=== PATIENT | male | born 1990 | race Caucasian/White ===

== ENCOUNTER → 2017-05-15 | Outpatient (REF) | payer BC | LOC: M SFHCLERA 09:50 | PROVIDERS: ATTEND Nurse Practitioner Family | DX: J02.9 Acute pharyngitis, unspecified (principal) ==

== ENCOUNTER → 2017-06-19 | Outpatient (CLI) | payer BC ==
--- NOTE | 2017-06-20 01:42 | REP ---
Clinical: Lower back pain . Technique: AP, lateral, bilateral oblique, and coned-down views. Findings: Alignment and lordosis is maintained. The vertebral bodies are intact and there is no evidence for acute fracture / compression injury or subluxation. L5 spondylolysis without spondylolisthesis cannot be excluded. No further degenerative changes noted. Impression: L5 spondylolysis suspected without spondylolisthesis. Signed by Topher Kim MD 06/20/2017 01:34 A
== END ==
LOC: M LRY 14:39
PROVIDERS: ATTEND Family Medicine
DX: M54.5 Low back pain (principal)

== ENCOUNTER → 2017-06-19 | Outpatient (REF) | payer BC ==
[2017-06-19 17:05] LABS: ALBUMIN/GLOBULIN RATIO 1.08 (1.00-1.93); ALKALINE PHOSPHATASE 94 U/L (45-117); ALT/SGPT 74 U/L (12-78); ANION GAP 9 MEQ/L (8-16); AST/SGOT 47 U/L (15-37); BILIRUBIN,TOTAL 0.3 MG/DL (0.2-1.0); BLOOD UREA NITROGEN 10 MG/DL (7-18); CALCIUM LEVEL 9.2 MG/DL (8.5-10.1); CARBON DIOXIDE LEVEL 29 MEQ/L (21-32); CHLORIDE LEVEL 100 MEQ/L (98-107); CHOLESTEROL LEVEL 160 MG/DL (<200); CREATININE FOR GFR 0.81 MG/DL (0.70-1.30); GLOMERULAR FILTRATION RATE > 60.0 (>60); GLUCOSE, FASTING 77 MG/DL (70-105); POTASSIUM SERUM 3.7 MEQ/L (3.5-5.1); SODIUM LEVEL 138 MEQ/L (136-145); TOTAL PROTEIN 7.7 GM/DL (6.4-8.2); TRIGLYCERIDES LEVEL 129 MG/DL (<150)
== END ==
LOC: M SFHCLERA 14:32
PROVIDERS: ATTEND Family Medicine
DX: Z87.898 Personal history of other specified conditions (principal); Z13.220 Encounter for screening for lipoid disorders

== ENCOUNTER 2018-02-02 20:31 | Emergency (ER) | payer BC ==
[2018-02-02] MEDS: KETOROLAC 30 MG/ML VIAL (J1885) IV (21:46)
[2018-02-02] MEDS: NS 1,000 ML IV (21:46)
[2018-02-02 22:12] LABS: BASO % 0.2 % (0.0-1.0); EOS # 0.1 10^3/uL (0.0-0.50); HEMATOCRIT 44.7 % (42.0-52.0); HEMOGLOBIN 14.4 g/dl (14.0-18.0); IMMATURE GRANULOCYTE % 0.7 % (0-3.0); LYMPH # 1.3 10^3/uL (1.5-6.5); LYMPH % 9.5 % (24.0-44.0); MEAN CORPUSCULAR HEMOGLOBIN 26.8 pg (27.0-33.0); MEAN CORPUSCULAR HGB CONC 32.2 g/dl (32.0-36.5); MEAN CORPUSCULAR VOLUME 83.2 fl (80.0-96.0); MONO # 1.2 10^3/uL (0.0-0.8); MONO % 8.7 % (0.0-5.0); NEUTROPHILS # 10.9 10^3/uL (1.8-7.7); NEUTROPHILS % 79.9 % (36.0-66.0); PLATELET COUNT, AUTOMATED 307 10^3/uL (150-450); RED BLOOD COUNT 5.37 10^6/uL (4.30-6.10); RED CELL DISTRIBUTION WIDTH 12.5 % (11.5-14.5); WHITE BLOOD COUNT 13.6 10^3/uL (4.0-10.0)
[2018-02-02 22:16] LABS: KETONE, URINE AUTO RFX 1+ mg/dL (NEGATIVE); LEUKOCYTE ESTERASE UR AUTO RFX NEGATIVE (NEGATIVE); MUCUS, URINE RFX SMALL (NEGATIVE); NITRITE, URINE AUTO RFX NEGATIVE (NEGATIVE); RBC, URINE AUTO RFX 5 /HPF (0-3); SPECIFIC GRAVITY UR AUTO RFX 1.024 (1.002-1.035); SQUAM EPITHELIAL CELL UR AURFX 0 /HPF (0-6); WBC, URINE AUTO RFX 0 /HPF (0-3)
[2018-02-02 22:32] LABS: ALBUMIN 3.2 GM/DL (3.2-5.2); ALKALINE PHOSPHATASE 72 U/L (45-117); ALT/SGPT 23 U/L (12-78); AMYLASE 33 U/L (25-115); ANION GAP 6 MEQ/L (8-16); AST/SGOT 16 U/L (7-37); BILIRUBIN,DIRECT < 0.1 MG/DL (0.0-0.2); BILIRUBIN,TOTAL 0.4 MG/DL (0.2-1.0); BLOOD UREA NITROGEN 7 MG/DL (7-18); CALCIUM LEVEL 9.3 MG/DL (8.5-10.1); CARBON DIOXIDE LEVEL 30 MEQ/L (21-32); CHLORIDE LEVEL 102 MEQ/L (98-107); CREATININE FOR GFR 0.68 MG/DL (0.70-1.30); GLOMERULAR FILTRATION RATE > 60.0 (>60); GLUCOSE, FASTING 91 MG/DL (70-100); LIPASE 121 U/L (73-393); POTASSIUM SERUM 3.7 MEQ/L (3.5-5.1); SODIUM LEVEL 138 MEQ/L (136-145); TOTAL PROTEIN 8.5 GM/DL (6.4-8.2)
[2018-02-02] MEDS: predniSONE 20 MG TAB PO (23:37)
== END 2018-02-02 23:40 | disposition home or self-care (01) ==
LOC: M ED 20:31
DX: K50.00 Crohn's disease of small intestine without complications (principal); K59.00 Constipation, unspecified; Z91.041 Radiographic dye allergy status
CPT/HCPCS: J1885

== ENCOUNTER → 2018-03-25 | Outpatient (CLI) | payer BC ==
[2018-03-25 13:13] LABS: VITAMIN B12 LEVEL 383 PG/ML (247-911)
== END ==
LOC: M LAB 12:05
DX: R19.7 Diarrhea, unspecified (principal)
CPT/HCPCS: 82607

== ENCOUNTER → 2018-03-27 | Outpatient (CLI) | payer BC ==
[~2018-03-27] MED LIST: E-Z-PAQUE 96% w/w SUSP 176GM BTL As Ordered
== END ==
LOC: M RAD 09:00
DX: R93.3 Abnormal findings on diagnostic imaging of other parts of digestive tract (principal); R10.31 Right lower quadrant pain; R19.7 Diarrhea, unspecified
CPT/HCPCS: 74250

== ENCOUNTER 2018-04-09 09:40 | Day surgery (SDC) | payer BC ==
[2018-04-09] MEDS: NS 1,000 ML IV ×2 (10:00)
[2018-04-09] MEDS ORDERED: LIDOCAINE 2% INJ 100 MG/5 ML SDV (FOR ANES.) As Ordered ×2 (10:39)
[2018-04-09] MEDS ORDERED: PROPOFOL 200 MG/20 ML VIAL As Ordered ×10 (10:39→11:53)
== END 2018-04-09 13:28 | disposition home or self-care (01) ==
LOC: M OPP 09:40
DX: R93.3 Abnormal findings on diagnostic imaging of other parts of digestive tract (principal); K56.699 Other intestinal obstruction unspecified as to partial versus complete obstruction; D49.0 Neoplasm of unspecified behavior of digestive system; R11.10 Vomiting, unspecified; Z91.041 Radiographic dye allergy status; Z83.79 Family history of other diseases of the digestive system
CPT/HCPCS: 45380

== ENCOUNTER → 2019-02-18 | Outpatient (CLI) | payer BC ==
[~2019-02-18] MED LIST changes: -E-Z-PAQUE 96% w/w SUSP 176GM BTL As Ordered; +MEDR4PAK PO; +ZOFR4TAB14 PO
[2019-02-19 09:46] LABS: HEPATITIS B SURFACE ANTIBODY NEGATIVE (POSITIVE); HEPATITIS B SURFACE ANTIGEN NEGATIVE (NEGATIVE)
== END ==
LOC: M LAB 16:33
PROVIDERS: ATTEND Internal Medicine Gastroenterology
DX: K50.012 Crohn's disease of small intestine with intestinal obstruction (principal)

== ENCOUNTER → 2019-12-07 | Outpatient (REF) | payer BC | LOC: M SFHCLERA 10:20 | PROVIDERS: ATTEND Nurse Practitioner Family | DX: R50.9 Fever, unspecified (principal) ==

== ENCOUNTER 2020-04-22 02:36 | Emergency (ER) | payer BC ==
[~2020-04-22] VITALS: Ht 170.2 cm; Wt 82.0 kg
[2020-04-22 02:36] VITALS: BP 158/94
[2020-04-22] MEDS ORDERED: HUMI40KI SC (02:40)
== END 2020-04-22 03:45 | disposition left against medical advice (07) ==
LOC: M ED 02:36
DX: H57.13 Ocular pain, bilateral (principal); Z53.21 Procedure and treatment not carried out due to patient leaving prior to being seen by health care provider

== ENCOUNTER → 2020-10-16 | Outpatient (CLI) | payer BC ==
[~2020-10-16] MED LIST changes: +HUMI40KI SC
[2020-10-16 14:34] LABS: BASO # 0.1 10^3/uL (0.0-0.2); BASO % 0.4 % (0.0-1.0); EOS # 0.2 10^3/uL (0.0-0.5); EOS % 1.3 % (0.0-3.0); HEMATOCRIT 53.3 % (42.0-52.0); HEMOGLOBIN 17.3 g/dl (13.5-17.5); LYMPH # 1.9 10^3/uL (1.5-5.0); LYMPH % 16.3 % (24.0-44.0); MEAN CORPUSCULAR HEMOGLOBIN 29.4 pg (27.0-33.0); MEAN CORPUSCULAR HGB CONC 32.5 g/dl (32.0-36.5); MEAN CORPUSCULAR VOLUME 90.5 fl (80.0-96.0); MONO % 8.6 % (0.0-5.0); NEUTROPHILS # 8.6 10^3/uL (1.5-8.5); NEUTROPHILS % 72.8 % (36.0-66.0); PLATELET COUNT, AUTOMATED 199 10^3/uL (150-450); RED BLOOD COUNT 5.89 10^6/uL (4.30-6.10); WHITE BLOOD COUNT 11.8 10^3/uL (4.0-10.0)
[2020-10-16 15:31] LABS: ALBUMIN 4.3 GM/DL (3.2-5.2); ALT/SGPT 44 U/L (12-78); BILIRUBIN,TOTAL 0.6 MG/DL (0.2-1.0); BLOOD UREA NITROGEN 12 MG/DL (7-18); CALCIUM LEVEL 9.7 MG/DL (8.5-10.1); CARBON DIOXIDE LEVEL 30 MEQ/L (21-32); CHLORIDE LEVEL 103 MEQ/L (98-107); CREATININE FOR GFR 0.85 MG/DL (0.70-1.30); FREE T4 1.04 NG/DL (0.76-1.46); GLOMERULAR FILTRATION RATE > 60.0 (>60); GLUCOSE, FASTING 80 MG/DL (70-100); HEPATITIS B SURFACE ANTIGEN NEGATIVE (NEGATIVE); IRON (FE) 122 UG/DL (65-175); PERCENT SATURATION 28.6 % (19.7-50.0); POTASSIUM SERUM 4.1 MEQ/L (3.5-5.1); SODIUM LEVEL 139 MEQ/L (136-145); TOTAL IRON BINDING CAPACITY 427 UG/DL (250-450); TOTAL PROTEIN 8.2 GM/DL (6.4-8.2)
[2020-10-16 19:07] LABS: VITAMIN B12 LEVEL 419 PG/ML (247-911)
== END ==
LOC: M LAB 13:52
PROVIDERS: ATTEND Internal Medicine Gastroenterology
DX: K50.00 Crohn's disease of small intestine without complications (principal)

== ENCOUNTER → 2021-09-25 | Outpatient (CLI) | payer BC | LOC: M LAB 12:26 | PROVIDERS: ATTEND Internal Medicine Gastroenterology | DX: K50.00 Crohn's disease of small intestine without complications (principal) ==

== ENCOUNTER 2022-04-04 07:47 | Emergency (ER) | payer OTHER, BC ==
[~2022-04-04] VITALS: Ht 172.7 cm; Wt 98.2 kg
[2022-04-04] MEDS ORDERED: LIDOCAINE 5% (LIDODERM) PATCH TD ONE (11:20)
[2022-04-04] MEDS ORDERED: LIDOCAINE 1% MDV 20ML VIAL SC ONE (11:20)
[2022-04-04] MEDS ORDERED: NEOSPORIN OINT 0.9 GM PKT TOP ONE (11:20)
[2022-04-04] MEDS ORDERED: BOOSTRIX/ADACEL VACCINE (DIPHTH/PERTUSS/ACELL/TETANUS) 0.5ML SYR IM ONE (11:25)
[2022-04-04] MEDS ORDERED: BACI50OI TOP (13:18)
[2022-04-04] MEDS ORDERED: ASPE4PAD TOP (13:18)
[2022-04-04 13:30] VITALS: BP 148/82
[2022-04-04] MEDS ORDERED: **NOTE PATIENT COMMENT** MISC XX SCH (21:00)
== END 2022-04-04 13:38 | disposition home or self-care (01) ==
LOC: M ED 09:47
DX: S01.119A Laceration without foreign body of unspecified eyelid and periocular area, initial encounter (principal); S01.419A Laceration without foreign body of unspecified cheek and temporomandibular area, initial encounter; S22.31XA Fracture of one rib, right side, initial encounter for closed fracture; K50.90 Crohn's disease, unspecified, without complications; V49.40XA Driver injured in collision with unspecified motor vehicles in traffic accident, initial encounter; Z79.01 Long term (current) use of anticoagulants; Y92.9 Unspecified place or not applicable; Y93.9 Activity, unspecified; Y99.9 Unspecified external cause status; Z91.041 Radiographic dye allergy status

== ENCOUNTER → 2022-10-21 | Outpatient (CLI) | payer BC ==
[~2022-10-21] MED LIST changes: +ASPE4PAD TOP; +BACI50OI TOP
== END ==
LOC: M LAB 15:38
PROVIDERS: ATTEND Internal Medicine Gastroenterology
DX: K50.00 Crohn's disease of small intestine without complications (principal)

== ENCOUNTER 2023-07-14 10:13 | Emergency (ER) | payer OTHER, BC ==
[~2023-07-14] VITALS: Ht 170.2 cm; Wt 94.8 kg
[2023-07-14] MEDS ORDERED: CEPH500C PO (13:03)
[2023-07-14] MEDS ORDERED: HYDR-3713 PO (13:03)
[2023-07-14] MEDS ORDERED: NORCO, ANEXSIA 5/325MG TABLET (HYDROcodone/ACETAMINOPHEN) PO ONE (13:10)
[2023-07-14 13:26] VITALS: BP 168/93; TEMP 98.6; O2SAT 99
== END 2023-07-14 13:33 | disposition home or self-care (01) ==
LOC: M ED 10:13
DX: S98.122A Partial traumatic amputation of left great toe, initial encounter (principal); S92.912A Unspecified fracture of left toe(s), initial encounter for closed fracture; W20.8XXA Other cause of strike by thrown, projected or falling object, initial encounter; K50.90 Crohn's disease, unspecified, without complications; F17.200 Nicotine dependence, unspecified, uncomplicated; F12.10 Cannabis abuse, uncomplicated; F10.10 Alcohol abuse, uncomplicated; Z91.041 Radiographic dye allergy status; Z79.1 Long term (current) use of non-steroidal anti-inflammatories (NSAID); Z79.899 Other long term (current) drug therapy

== ENCOUNTER → 2023-10-20 | Outpatient (CLI) | payer BC, OTHER ==
[~2023-10-20] MED LIST changes: +CEPH500C PO; +HYDR-3713 PO
== END ==
LOC: M LAB 16:05
PROVIDERS: ATTEND Internal Medicine Gastroenterology
DX: K50.00 Crohn's disease of small intestine without complications (principal)

== ENCOUNTER → 2024-12-31 | Outpatient (CLI) | payer BC ==
[2025-01-04 11:07] LABS: QuantiFERON-TB Gold Plus NEGATIVE (NEGATIVE)
== END ==
LOC: M WUC 11:12
PROVIDERS: ATTEND Internal Medicine Gastroenterology
DX: K50.00 Crohn's disease of small intestine without complications (principal)